=== PATIENT | female | born 1995 | race Caucasian/White ===

== ENCOUNTER 2018-10-30 05:32 | Day surgery (SDC) | payer MEDICAID ==
--- NOTE | 2018-10-23 10:46 | GHP ---
[f rep st] PREOP HISTORY AND PHYSICAL DATE OF ADMISSION: 10/30/2018 COMPLAINTS: elbow stiffness. HISTORY OF PRESENT ILLNESS: This is a 23-year-old female with a long history of elbow sti ffness, secondary to multiple deformities around the elbow. She would like surgery in order to resol ve the problem. ALLERGIES: Drug allergies, include Revatio and Tadalafil. CURRENT MEDICATION: Include clopidogrel, Letairis , norethindrone, tramadol, Zantac. PAST MEDICAL HISTORY: Prior medical problems, include heart disease, heart deformities, lung disease . PAST SURGICAL HISTORY: Include cardiac catheterization and stent placement. SOCIAL HISTORY: She has never been a smoker. She does not drink alcohol. PHYSICAL EXAMINATION: MUSCULOSKELETAL: The patient has severe stiffness to the elbow. She has 90 t o 120 degrees of extension across the elbow with very limited supination and pronation. HEENT: Pupi ls equal, round, react to light. CHEST: Clear to auscultation. HEART: Regular rate and rhythm. A BDOMEN: Soft and nontender. IMAGING: X-ray exam reveals a chronically dislocated radial head, as well as large spurs off the ole cranon and coronoid fossa. ASSESSMENT/PLAN: The patient is status post elbow deformity. Plan is to do a bony debrid ement of the olecranon and coronoid fossa in order to allow thee first pass on either side of the hum erus in order to gain further range of motion through the elbow. /[id number]/MODL
[2018-10-30] MEDS ORDERED: ceFAZolin 2 GM/DEXTROSE 100 ML IV ONE (05:45)
[2018-10-30] MEDS ORDERED: LR 1,000 ML IV SCH (05:45)
[2018-10-30] MEDS ORDERED: ROPIVACAINE 0.2% 80 MG, EPINEPHrine 0.2 MG, KETOROLAC TROMETHAMINE 30 MG, morphINE 10 M... IU ONE (06:00)
[2018-10-30] MEDS ORDERED: POLYMYXIN B SULFATE 500,000 UNIT/10 ML SYR IRR ONE (06:54)
[2018-10-30] MEDS ORDERED: BUPIVACAINE/EPI 0.5% 30 ML SDV ONE (06:54)
[2018-10-30] MEDS ORDERED: BACITRACIN 50,000 UNITS/10 ML SYR IRR ONE (06:54)
[2018-10-30] MEDS ORDERED: SCOPOLAMINE HYDROBROMIDE 1 MG/3 DAYS PATCH TD ONE ×3 (06:58→07:03)
--- NOTE | 2018-10-30 07:02 | PDANEPAE ---
ANE Past Medical History - Cardiovascular History Hx Hypertension: No Hx Arrhythmias: No Hx Chest Pain: No Hx Coronary Artery / Peripheral Vascular Disease: No Hx CHF / Valvular Disease: No Hx Palpitations: No Cardiovascular History Comment: PULM HTN - Pulmonary History Hx COPD: No Hx Asthma/Reactive Airway Disease: No Hx Recent Upper Respiratory Infection: No Hx Oxygen in Use at Home: No Hx Sleep Apnea: No Sleep Apnea Screening Result - Last Documented: Negative - Neurologic History Hx Cerebrovascular Accident: No Hx Seizures: No Hx Dementia: No - Endocrine History Hx Diabetes: No - Renal History Hx Renal Disorders: No - Liver History Hx Hepatic Disorders: No - Neurological & Psychiatric Hx Hx Neurological and Psychiatric Disorders: No - Cancer History Hx Cancer: No - Congenital Disorder History Hx Congenital Disorders: Yes 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 TETHERED SPINAL CORD RELEASE AGE 4. YANIRA ING HERNIA. 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 T&A. HEART CATHS. STENT ANE Review of Systems Review of Systems: - Exercise capacity METS (RN): 4 METS ANE Patient History - Allergies Allergies/Adverse Reactions: sildenafil [From Revatio] Allergy (Verified 10/25/18 09:11) LABIAL SWELLING tadalafil Allergy (Verified 10/25/18 09:11) LABIAL SWELLING - Home Medications Home Medications: Clopidogrel 10/25/18 [Last Taken 10/23/18 09:00] Letairis HS 10/25/18 [Last Taken 10/29/18] Melatonin 1 mg HS 10/25/18 [Last Taken 10/29/18] Norethindrone HS 10/25/18 [Last Taken 10/29/18] Zantac 75 HS 10/25/18 [Last Taken 10/29/18] - NPO status NPO Since - Liquids (Date): 10/29/18 NPO Since - Liquids (Time): 21:00 NPO Since - Solids (Date): 10/29/18 NPO Since - Solids (Time): 19:30 - Smoking Hx Smoking Status: Never smoked ANE Labs/Vital Signs - Vital Signs Blood Pressure: 96/61 Heart Rate: 71 Respiratory Rate: 16 O2 Sat (%): 92 Height: 139.7 cm Weight: 34.019 kg ANE Physical Exam - Airway Mallampati Score: Class 1 ANE Anesthesia Plan Anesthesia Plan: general endotracheal anesthesia, GA w LMA Regional Anesthesia: interscalene BP NB
--- NOTE | 2018-10-30 07:04 | PDHPUP ---
History & Physical Update H&P update statement: This history and physical update is based on an assessment of the patient which was completed after admission or registration (within 24 hours), but prior to the surgery/procedure. H&P update: H&P reviewed & patient examined, no change in patient's condition since H&P completed
[2018-10-30] MEDS ORDERED: MIDAZOLAM 2 MG/2 ML VIAL ONE (07:15)
[2018-10-30] MEDS ORDERED: fentaNYL 100 MCG/2 ML INJ ONE ×2 (07:15→09:43)
[2018-10-30] MEDS ORDERED: PROPOFOL 200 MG/20 ML VIAL ONE (07:15)
[2018-10-30] MEDS ORDERED: LIDOCAINE 2% JELLY 6 ML TOPICAL SYR ONE (07:22)
[2018-10-30] MEDS ORDERED: ONDANSETRON 4 MG/2 ML VIAL ONE ×2 (07:22→10:34)
[2018-10-30] MEDS ORDERED: ACETAMINOPHEN 325 MG TAB PO PRN (10:06)
[2018-10-30] MEDS ORDERED: ONDANSETRON 4 MG/2 ML VIAL IVP PRN ×2 (10:06→10:27)
[2018-10-30] MEDS ORDERED: KETOROLAC 15 MG/1 ML SDV IVP ONE (10:06)
[2018-10-30] MEDS ORDERED: OXYCODONE/APAP 5/325 TAB PO PRN (10:06)
--- NOTE | 2018-10-30 10:06 | POSTOPPROG ---
Post Op Note Date of Operation: 10/30/18 Surgeon: Grisel Cain Wet Process Miller: coltrain Anesthesia: GET(General Endotracheal) Pre-op Diagnosis: r elbow spurs Procedure: r elbow spur excision and fossa excision Inf/Abcess present in the surg proc area at time of surgery?: No Depth: Deep Incisional (Fascial) EBL: 100-500
[2018-10-30] MEDS ORDERED: NALOXONE HCL 0.4 MG/ML INJ IVP PRN (10:27)
[2018-10-30] MEDS ORDERED: fentaNYL 100 MCG/2 ML INJ IVP PRN (10:27)
[2018-10-30] MEDS ORDERED: LR 500 ML IV PRN (10:27)
--- NOTE | 2018-10-30 10:28 | POSTANESTH ---
Post Anesthetic Evaluation Cardiovascular Status: Similar to Pre-Op Cond Respiratory Status: Similar to Pre-op Cond. Level of Consciousness/Mental Status: Can Participate in Eval Pain Control: Adequate, Prn Tx Ordered Nausea/Vomiting Control: Adequate, Prn Tx Ordered Complications Possibly Related to Anesthesia: None Noted
[2018-10-30] MEDS ORDERED: DEXAMETHASONE 4 MG/ML VIAL ONE ×2 (11:04→11:48)
[2018-10-30] MEDS ORDERED: PROMETHAZINE HCL 25 MG/ML INJ ONE (11:07)
[2018-10-30] MEDS ORDERED: PROMETHAZINE HCL 25 MG/ML INJ IVP PRN ×2 (11:16→11:53)
[2018-10-30] MEDS ORDERED: DEXAMETHASONE 4 MG/ML VIAL IVP ONE (12:00)
[2018-10-30] MEDS ORDERED: PROMETHAZINE HCL 25 MG/ML INJ IVP ONE (12:00)
--- NOTE | 2018-10-30 13:48 | GOP ---
[f rep st] OPERATIVE REPORT DATE OF OPERATION: 10/30/2018 SURGEON: Grisel Cain MD [place] MAN[facility], whose presence was medically necessary. ANESTHESIA: LMA. 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 She has develo ped spurs off the olecranon tip, as well as the coronoid tip, inhibiting motion. She would like surg chiara in order to resolve the problem. DESCRIPTION OF PROCEDURE: The patient was brought to the operating room after the right side had bee n identified as correct side by the patient and nurse physician. Once in the operating room, she was placed under general anesthesia using an LMA. Once asleep, a tourniquet was place around the upper portion of the right upper extremity with the right upper extremity sterilely prepped and draped in t he usual fashion using GSI solution. Once prepped and draped, the limb was exsanguinated, tourniquet inflated to 250 mmHg. A linear incision was made just radial to the olecranon, ascending along the triceps tendon with sharp dissection carried down through the skin and subcutaneous layers, bleeding controlled using electrocautery. Blunt and sharp dissection was carried down on the radial side of t he triceps tendon, which was then retracted medially, gaining access into the olecranon tip, as well as the olecranon fossa. The olecranon fossa was debrided with the bone removed all the way through t he anterior cortex to the coronoid fossa and the spurring noted off the tip of the olecranon, as well as the radial portion of the olecranon humeral joint was debrided in order to gain further flexion a nd extension. Attention was then turned anteriorly, where using old transverse incision across the a ntecubital fossa was extended both proximally and distally. further access, dissection wa s carried down on either side of the biceps tendon onto to the area around the coronoid. Spurring wa s removed off the radial border near the coronoid and then toward the ulnar border after the biceps h ad been moved out of the way. Once completed, the patient was able to achieve where she had only had 90 degrees of flexion before, she had approximately 130 degrees of flexion, and where she had only h ad approximately 7 degrees of extension, she now had extension near 35 degrees; thereby, increasing h er arc of motion. The wound was thoroughly irrigated with antibiotic solution. The tourniquet was r eleased at 100 minutes. Bleeding was controlled using electrocautery. 0 Vicryl suture was used for the subcutaneous layers, 2-0 Vicryl suture for the subcutaneous layers and a 3-0 V-Loc suture in a ru nning subcuticular stitch was used for the skin. Joint cocktail was injected into and around the wou nd. The wounds were then dressed with Steri-Strips, Xeroform, 4 x 4, wrapped in Kerlix and an Kris wr ap. The patient was completely undraped in the operating room, had the tourniquet removed from the a . She was woken up, extubated, transferred onto a stretcher and sent to the recovery room in good condition. TOURNIQUET TIME: 100 minutes. /[id number]/MODL
[2018-10-30 14:48] VITALS: BP 126/74
[2018-11-02] MEDS ORDERED: PATCH REMOVAL 1 EA PATCH TD SCH (07:01)
== END 2018-10-30 14:30 | disposition home or self-care (01) ==
LOC: FSGY 05:32
PROVIDERS: ATTEND Orthopaedic Surgery
DX: M24.321 Pathological dislocation of right elbow, not elsewhere classified (principal); M77.8 Other enthesopathies, not elsewhere classified; Z87.728 Personal history of other specified (corrected) congenital malformations of nervous system and sense organs; Z87.74 Personal history of (corrected) congenital malformations of heart and circulatory system; Z87.76 Personal history of (corrected) congenital malformations of integument, limbs and musculoskeletal system
CPT/HCPCS: J0171; J0690; J1100; J1885; J2250; J2270; J2405; J2550; J2704; J2795; J3010